=== PATIENT | female | born 1975 | race Caucasian/White ===

== ENCOUNTER 2020-04-25 08:03 | Outpatient (CLI) | payer SELFPAY | END 2020-04-25 08:23 | PROVIDERS: PCP Family Medicine; Visit Provider Physician Assistant | DX: R00.2 Palpitations (principal) | CPT/HCPCS: 93225 ==

== ENCOUNTER 2020-05-01 12:46 | Outpatient (CLI) | payer SELFPAY ==
--- NOTE | 2020-05-01 15:07 | W.HOLTRPT ---
Date of service: 05/01/20 Time of Service: 15:07 Holter Monitor Report Referring Provider:: Naima Stewart Indications:: Palpitations
--- NOTE | 2020-05-01 15:12 | W.HOLTRPT ---
Date of service: 05/01/20 Time of Service: 15:12 Holter Monitor Report Referring Provider:: Naima Stewart Indications:: Palpitations Holter Monitor Note: This is a 48-hour Holter monitor reportedly ordered for symptoms of palpitations. Predominant rhythm was sinus. Average heart rate was 68. Minimum heart rate was 50 and maximum 107 There were no significant atrial or ventricular dysrhythmias There was no atrial fibrillation. There was no high-grade AV block or pauses greater than 3 seconds The patient's reported symptoms did not correspond to any dysrhythmia
== END 2020-05-01 13:06 ==
PROVIDERS: PCP Family Medicine; Visit Provider Physician Assistant
DX: R00.2 Palpitations (principal)
CPT/HCPCS: 93226